=== PATIENT | male | born 1980 | race Caucasian/White ===

== ENCOUNTER → 2018-04-01 | Outpatient (CLI) | payer OTHER ==
--- NOTE | 2018-04-01 11:19 | CONS ---
CONSULTATION DATE OF SERVICE: 04/01/2018 This 37-year-old gentleman has been evaluated in the sleep center for possible obstructive sleep apnea-hypopnea syndrome. HISTORY OF PRESENT ILLNESS/SLEEP WAKE EVALUATION: Patient usual sleep schedule on working days from around 1 a.m. until 8 a.m. and on weekends from around 10:30 or 11 p.m. until 7 to 7:30 a.m. No problem with falling asleep, although patient has TV set in bedroom. According to his , he has loud snoring and multiple episodes of stopped breathing during sleep. Patient grinding teeth, wakes up from sleep with gasping for air, sometimes with restless legs symptoms, sleep talking, up to 6 times per night with up to 2 episodes of nocturia. In the morning, patient wakes up tired, worries about his sleep, has irritability. [place] Sleepiness Scale significantly increased to 10. The patient sometimes takes naps at lunchtime. 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 History of hypertension. Patient was treated for hypertension with medication. History of back injury 4 years ago. At that time, the patient had increased blood pressure, was treated with hypertensive medications. History of increasing cholesterol in the past. PAST SURGICAL HISTORY: Surgery on sinuses in 2003. MEDICATIONS: None. SOCIAL HISTORY: Negative for smoking. Alcohol consumption occasional. FAMILY HISTORY: Hypertension, hyperlipidemia, snoring, diabetes, restless legs. REVIEW OF SYSTEMS: Multiple awakenings from sleep, sleepiness during the day, snoring, witnessed episodes of stopped breathing. PHYSICAL EXAMINATION: During physical exam, gentleman without distress. VITAL SIGNS: BP 142/93, HR 84, RR 16, height 5 feet 9 inches, weight 184, BMI 27.1. Neck 15-3/4 inch circumference. Temperature 97.8, oxygen saturation room air 99%. HEENT: PERRLA, EOMI. Oropharynx low position of soft palate. Restriction of the nasal breathing mostly on the left side. NECK: Supple, no JVD. Thyroid is not palpable. LUNGS: Clear to percussion and to auscultation. Good air exchange. No wheezing or rhonchi. HEART: S1, S2 regular. No murmurs, gallops, or rubs. ABDOMEN: Soft and nontender. Bowel sounds are present. No organomegaly appreciated. EXTREMITIES: No clubbing or cyanosis. BANANA ROOM CUTTER: Awake, alert, and oriented X3. Cranial nerves 2 to 7 intact. There is no fasciculation or atrophy. noted. No focal deficits observed. IMPRESSION: 1. Snoring, witnessed episodes of stopped breathing during sleep, excessive sleepiness, low position of the soft palate, obstructive sleep apnea-hypopnea syndrome. 2. 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 3. History of sinusitis, status post surgery with of sinuses in 2003. 4. Status post back injury 4 years ago. 5. History of hypertension treated with medications 4 years ago and not on any medications at the present time. Slightly increasing of blood pressure in the office. PLAN: 1. Polysomnography for evaluation of patient's breathing during sleep. 2. CPAP/BiPAP titration if sleep study confirms obstructive sleep apnea-hypopnea syndrome. 3. Preferable position during sleep on the side. 4. No driving if patient feels any sleepiness. 5. I will see patient for follow up visit to explain results of testing and following plan. 6. Monitoring of blood pressure. 7. Low-sodium diet. Sincerely, Baljinder Chavez MD, PhD, FAASM Diplomat of [employer] [employer] [employer] Licensed Vocational Nurse of [facility] MMODL / IJN: [id number] /
== END | disposition home or self-care (01) ==
LOC: SLEEP 09:59
PROVIDERS: ATTEND Internal Medicine
DX: G47.33 Obstructive sleep apnea (adult) (pediatric) (principal); I10 Essential (primary) hypertension; M27.8 Other specified diseases of jaws; Z87.09 Personal history of other diseases of the respiratory system; Z87.828 Personal history of other (healed) physical injury and trauma
CPT/HCPCS: 99211